=== PATIENT | female | born 2005 | race African-American/Black ===

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

== ENCOUNTER → 2023-01-15 16:45 | Outpatient (CLI) | payer OTHER, MEDICAID, SELFPAY ==
--- NOTE | 2023-01-15 16:47 | DI.RAD.S_ITS ---
PROCEDURE: XR ANKLE LT MIN 3V INDICATIONS: Left ankle strain TECHNIQUE: 3 views of the ankle were acquired. COMPARISON: [facility], CR, XR ANKLE RT MIN 3V, 09/30/2021, 15:08. FINDINGS: Bones: No fractures or dislocations. Ankle mortise is normally aligned. No suspicious bony lesions. Soft tissues: No tibiotalar joint effusion. Achilles tendon appears normal. Mediolateral soft tissue swelling. IMPRESSION: Medial and lateral soft tissue swelling; otherwise no definite radiographic abnormality. If pain persists with conservative management, consider cross sectional imaging such as CT or MRI for further assessment. Dictated by: John Dove [facility] Interpreted: Los Quevedo MD on 01/15/2023 at 19:49 Transcribed by: NILO on 01/16/2023 at 8:16 Approved by: Los Quevedo M.D. on 01/16/2023 at 18:14
== END ==
PROVIDERS: PCP Registered Nurse Diabetes Educator; Referring Provider Nurse Practitioner Family; Visit Provider Nurse Practitioner Family
DX: S96.912A Strain of unspecified muscle and tendon at ankle and foot level, left foot, initial encounter (principal); X58.XXXA Exposure to other specified factors, initial encounter
CPT/HCPCS: 73610

== ENCOUNTER → 2023-02-05 14:24 | Outpatient (CLI) | payer OTHER, SELFPAY ==
--- NOTE | 2023-02-05 14:25 | DI.RAD.S_ITS ---
PROCEDURE: XR CHEST 2V INDICATIONS: dyspnea, CP TECHNIQUE: 2 views of the chest were acquired. COMPARISON: None. FINDINGS: Surgical changes and devices: None. Lungs and pleura: Lungs are clear. No pleural effusions or pneumothorax. Mediastinum: Mediastinal contours are normal. Heart size is normal. Bones and chest wall: No suspicious bony abnormalities. Soft tissues appear unremarkable. IMPRESSION: No acute cardiopulmonary abnormality is seen. Dictated by: Rodolfo Jimenez M.D. on 02/05/2023 at 16:32 Approved by: Rodolfo Jimenez M.D. on 02/05/2023 at 16:32
== END ==
PROVIDERS: PCP Registered Nurse Diabetes Educator; Referring Provider Registered Nurse Diabetes Educator; Visit Provider Registered Nurse Diabetes Educator
DX: R07.9 Chest pain, unspecified (principal); R00.2 Palpitations; R06.09 Other forms of dyspnea
CPT/HCPCS: 71046